=== PATIENT | male | born 1980 | race Caucasian/White ===

== ENCOUNTER 2017-10-26 22:55 | Emergency (ER) | payer SELFPAY ==
[~2017-10-26] VITALS: Ht 182.9 cm; Wt 88.1 kg
[2017-10-26 23:15] VITALS: BP 155/76
== END 2017-10-26 23:22 | disposition home or self-care (01) ==
LOC: ED 23:15
DX: K04.7 Periapical abscess without sinus (principal)
CPT/HCPCS: 99283